=== PATIENT | male | born 1950 | race Caucasian/White ===

== ENCOUNTER 2019-12-10 00:51 | Outpatient (CLI) | payer MEDICARE, BC, SELFPAY ==
--- NOTE | 2019-12-10 | DI.NM_ITS ---
APPROVED REPORT Exam: Exercise Treadmill Patient Location: Out-Patient Room/Bed: Stress Nurse: Kenya Burciaga RN BMI: 25.49 Baseline Rhythm: Sinus Rhythm Indications: Patient reports some substernal/epigastric discomfort which has been treated with Ompraz ole, he states that has been helpful. He also states he has a significant family history of heart dis ease. Medical History Cardiac Medications: Hydrochlorothiazide, Lisinopril. Allergies: Aspirin, Clindamycin, Wellbutrin, Zosyn, Grass Pollen, Parrot Dander. Cardiac Risk Factors: FHX of CAD, HTN Previous Cardiac Procedures: None Pretest Chest Pain Characteristics: None Exercise History: Physically active Physical Disabilities: None Lung Sounds: Clear to auscultation Heart Sounds: Regular Stress Test Details Test: Exercise stress testing was performed using a Chidi protocol. Nuclear Acquisition: Rest Tc-99m/Stress Tc-99m 1 day Rest Isotope: Tc-99m Sestamibi. Dose: 9.9 Date: 12/10/2019 Injection Time: 1040 Stress Isotope: Tc-99m Sestamibi. Dose: 29.6 Date: 12/10/2019 Injection Time: 1255 HR Resting HR Supine: 65 bpm Max Heart Rate (APMHR): 153 bpm Resting HR Standin bpm Target HR (85% APMHR): 130 bpm Max HR Achieved: 158 bpm % of APMHR: 103 HR response to stress: Normal HR response to stress BP Resting BP Supine: 123/64 mmHg Resting BP Standin/62 mmHg Max BP: 166/50 mmHg BP response to stress: Normal blood pressure response to stress. ECG Resting ECG: Sinus Rhythm Ectopy: Rare PAC's, Occasional PVC's. Stress ECG: Sinus Tachycardia ST Change: Horizontal ST depression Lead(s): V3, V4, V5, V6 Maximum ST Deviation: 2 mm Arrhythmia: None Recovery ECG: Sinus Rhythm Recovery ST Change: Horizontal ST depression Lead(s): lateral leads Clinical Reason for Termination: Fatigue Stress Symptoms: None reported per patient. Exercise duration: 5 min41 sec Highest Stage Reached: Stage 2: 2.5 mph at 12% grade. Exercise capacity: 7.05 METs Functional Capacity: Mildly deminished capacity Stress ECG Conclusion 1. Patient exercised for 6 minutes (7 METS). The patient had no symptoms suggestive of ischemia. 2. Patient had [address] depressions in the lateral leads during exercise that was solved with recovery . 3. This represents an abnormal ECG finding. Stress Test Summary STAGE Time (mins) Speed (mph) Grade (%) HR BP SYMPTOMS METS Supine 65 123/64 Standing 68 130/62 1 3 1.7 10 138 152/58 4.6 2 6 2.5 12 158 162/56 7 1 min recovery 148 166/50 3 min recovery 111 160/60 6 min recovery 94 134/62 9 min recovery 90 120/66 12 min recovery 86 114/62 MPI Conclusion Patient's ejection fraction was 69% with stress. There were no wall motion abnormalities. There is no evidence of ischemia on the imaging portion exam. There are discordant findings between the imaging and EKG portion of the exam. This likely represent s a false positive ECG finding. Radiologist Interpretation Radiologist Interpretation by: Kash Up MD Interpretation Date/Time: 12/10/2019 15:45:58
== END 2019-12-10 01:11 ==
PROVIDERS: PCP Nurse Practitioner Family; Visit Provider Internal Medicine Interventional Cardiology
DX: R06.00 Dyspnea, unspecified (principal); R10.13 Epigastric pain; Z82.49 Family history of ischemic heart disease and other diseases of the circulatory system
CPT/HCPCS: 78452; 93016; 93018; 93017